=== PATIENT | male | born 1990 | race Caucasian/White ===

== ENCOUNTER 2016-09-13 16:09 | Emergency (ER) | payer OTHER ==
[2016-09-13 16:38] LABS: BASOPHIL# 0.1 X 10^3uL (0.0-0.1); BASOPHILS 1.2 % (0.0-2.0); EOSINOPHILS 2.5 % (0.0-6.0); EOSINOPHILS# 0.2 X 10^3uL (0.0-0.4); HEMATOCRIT 50.4 % (42.0-54.0); HEMOGLOBIN 17.4 g/dL (14.0-18.0); LYMPHOCYTES 34.6 % (20.0-40.0); LYMPHOCYTES# 2.5 X 10^3uL (0.8-3.8); MEAN CELL VOLUME 91.1 fL (80.0-100.0); MEAN CORPUS. HGB CONCENTRATION 34.4 g/dL (32.0-36.0); MEAN CORPUSCULAR HEMOGLOBIN 31.4 pg (29.0-35.0); MEAN PLATELET VOLUME 8.5 fL (7.4-10.4); MONOCYTES 8.2 % (2.0-10.0); MONOCYTES# 0.6 X 10^3uL (0.2-1.0); NEUTROPHILS 53.5 % (54.0-75.0); RED BLOOD COUNT 5.54 X 10^6uL (4.20-6.10); RED CELL DISTRIBUTION WIDTH 12.1 % (11.5-14.5); WHITE BLOOD COUNT 7.4 X 10^3uL (3.9-10.7)
--- NOTE | 2016-09-13 17:07 | ER NURSING DOCUMENTATION ---
Nurse's Notes [facility] Name:Carmina Cain Age:26 yrs Sex:Male :1990 Arrival Date:09/13/2016 Time:16:09 Bed1 Private MD: Diagnosis:Rectal Bleeding;Rectal Fissure Presentation: 09/13 16:11 Presenting complaint: Patient states: pt was seen in the clinic and was told that his st [place] only cover ER care. So pt was sent to the ER. pt has been having blood in his stool and rectal pain for 3-5 years. His last episode was 2 weeks ago. pt has no symptoms now. Transition of care: [facility]. 16:11 Method Of Arrival: Private Vehicle st 16:18 Acuity: BRANDI 4 rh Triage Assessment: 16:29 General: Appears in no apparent distress, Behavior is cooperative. Pain: Complains of st pain in back Pain currently is 6 out of 10 on a pain scale. Unable to use pain scale. pt was seen in the clinic for back pain and prescribed norco. Neuro: No deficits noted. Cardiovascular: No deficits noted. Respiratory: No deficits noted. GI: Reports pt states that every few weeks he has some rectal pain with bloody stools that last for a few days and then go away. pt has never seen a drSruthi for this. Historical: - Allergies: No known drug Allergies; - Home Meds: 1. steroids 2. [place] Oral 3. mucle relaxer - PMHx: back troubles; - PSHx: None; - Tetanus: < 10 years. - Ebola Screening: : Patient denies exposure to infectious person. Patient denies travel to an Ebola-affected area in the 21 days before illness onset. . - Social history: Smoking status: Patient states was never smoker of tobacco. Patient/guardian denies using alcohol, marijuana. Screenin:31 Infectious Disease Risk None. Abuse screen: Denies threats or abuse. Denies injuries st from another. Nutritional screening: No deficits noted. Vital Signs: 16:31 BP 166 / 97; Pulse 73; Resp 16; Temp 97.8; Pulse Ox 94% ; Pain 6/10; st 17:05 BP 159 / 89; Pulse 66; Resp 16; Pulse Ox 93% on R/A; rh ED Course: 16:11 Patient arrived in ED. lm3 16:18 Triage completed. 16:24 Flori Mcintyre RN is Primary Nurse. st 16:24 Labs drawn. (by ED staff). st 16:31 Valuables Remains with patient Patient has correct armband on for positive st identification. Bed in low position. 16:35 Andrea Costa MD is Attending Physician. damon Administered Medications: No medications were administered Outcome: 16:58 Discharge ordered by . damon 17:05 Discharged to home ambulatory, with significant other. 17:05 Condition: improved 17:05 Discharge Assessment: Patient awake, alert and oriented x 3. No cognitive and/or functional deficits noted. Patient verbalized understanding of disposition instructions. 17:05 Discharge instructions given to patient, significant other, Instructed on discharge instructions, follow up and referral plans. Demonstrated understanding of instructions. 17:06 Patient left the ED. Signatures: Flori Mcintyre RN RN st Meyer, John, MD MD jm Hofsess, Rachel Edna Pryor 3
--- NOTE | 2016-09-13 17:07 | ER PHYSICIAN DOCUMENTATION ---
Physician Documentation [facility] Name:Carmina Cain Age:26 yrs Sex:Male :1990 Arrival Date:09/13/2016 Time:16:09 Bed1 Private MD: Andrea Nunez Disposition: 09/13/16 16:58 Discharged to Home/Self Care. Impression: Rectal Bleeding, Rectal Fissure. - Condition is Good. - Discharge Instructions: RECTAL BLEED, Stable, RECTAL FISSURE Child - ANAL FISSURE (Child). - Medical Reconciliation form form. - Follow up: Private Physician; When: [facility]; Reason: Continuance of care. - Problem is new. - Symptoms have improved. HPI: 09/13 18:23 This 26 yrs old Male presents to ER via Private Vehicle with complaints of jm Back Pain. 18:23 The patient presents to the emergency department with rectal bleeding, a small amount, jm 2 weeks ago. Pt sent up by clinic to get a CBC as he's ahd some painful rectal bleeding in the past. . Historical: - Allergies: No known drug Allergies; - Home Meds: 1. steroids 2. [place] Oral 3. mucle relaxer - PMHx: back troubles; - PSHx: None; - Tetanus: < 10 years. - Ebola Screening: : Patient denies exposure to infectious person. Patient denies travel to an Ebola-affected area in the 21 days before illness onset. . - Social history: Smoking status: Patient states was never smoker of tobacco. Patient/guardian denies using alcohol, marijuana. ROS: 18:23 Abdomen/GI: Positive for rectal bleeding, Negative for abdominal pain, nausea, jm vomiting, diarrhea. 18:23 Back: Positive for pain at rest, pain with movement, chronic. Exam: 18:23 Eyes: Conjunctiva: normal. jm 18:23 Abdomen/GI: Inspection: abdomen appears normal, Bowel sounds: normal, Rectal exam: the exam is deferred. Vital Signs: 16:31 BP 166 / 97; Pulse 73; Resp 16; Temp 97.8; Pulse Ox 94% ; Pain 6/10; st 17:05 BP 159 / 89; Pulse 66; Resp 16; Pulse Ox 93% on R/A; rh MDM: 16:35 Patient medically screened. 18:23 Differential diagnosis: fissues. ED course: Pt w classic rectal fissures by damon description. Pt w/o bleeding in over 2 weeks. Hgb is >17, so pt can f/u as need for this. . 18:23 Data reviewed: vital signs, nurses notes, old medical records, and as a result, I will jm discharge patient. Counseling: I had a detailed discussion with the patient and/or guardian regarding: the historical points, exam findings, and any diagnostic results supporting the discharge/admit diagnosis, the need for outpatient follow up, with the patient's primary care provider. 09/13 16:40 Order name: CBC AUTO DIF, MDIF/RMOR IF IND; Complete Time: 16:57 EDMS Dispensed Medications: No medications were administered Signatures: Flori Mcintyre, RN Andrea Butler MD MD jm Hofsess, Rachel
== END 2016-09-13 17:06 | disposition home or self-care (01) ==
LOC: ER 16:09
DX: K60.2 Anal fissure, unspecified (principal); M54.9 Dorsalgia, unspecified; G89.29 Other chronic pain; Z79.899 Other long term (current) drug therapy
CPT/HCPCS: 85025; 99283

== ENCOUNTER 2016-12-20 17:36 | Emergency (ER) | payer OTHER, MEDICAID ==
[2016-12-20] MEDS ORDERED: TETRACAINE 0.5% OPHTH 15 ML BOTTLE ONE (18:10)
[2016-12-20] MEDS ORDERED: FLUORESCEIN STRIP 1 MG/STRIP STRIP ONE (18:10)
[2016-12-20] MEDS ORDERED: DIPH,PERTUSS(ACELL),TET VAC/PF 0.5 ML VIAL IM ONE (18:11)
[2016-12-20] MEDS ORDERED: LIDOCAINE/EPI 1% 1:100,000 20 ML VIAL ONE (18:40)
--- NOTE | 2016-12-20 19:13 | ER PHYSICIAN DOCUMENTATION ---
Physician Documentation [facility] Name:Carmina Cain Age:26 yrs Sex:Male :1990 Arrival Date:12/20/2016 Time:17:36 Bed5 Private MD: Abdi Troy Disposition: 12/22 05:50 Chart complete. tl1 Disposition: 12/20/16 19:07 Discharged to Home/Self Care. Impression: Dog Bite, Eyelid Laceration. - Condition is Good. - Discharge Instructions: DOG BITE, LACERATION, All. - Medical Reconciliation form form. - Follow up: Mark Schmitt MD; When: 4- 6 days; Reason: Staple/Suture removal. - Problem is new. - Symptoms have improved. HPI: 12/20 17:41 This 26 yrs old Male presents to ER with complaints of Dog Bite - WELD CO. tl1 12/21 17:41 The patient was bitten on the superior lateral left upper eyelid, by a dog, in an tl1 unprovoked manner. Onset: The symptom(s)/episode began/occurred suddenly, just prior to arrival. Animal information: Patient/Caregiver unable to provide information related to the animal. Secondary to the bite the patient reports a laceration, that is superficial. Associated signs and symptoms: The patient has no apparent associated signs or symptoms, Pertinent negatives:. Severity of symptoms: At their worst the symptoms were very mild, in the emergency department the symptoms are unchanged. Historical: - Allergies: Ibuprofen; - Tetanus: < 10 years. - Ebola Screening: : Patient negative for fever greater than or equal to 101.5 degrees Fahrenheit, and additional compatible Ebola Virus Disease symptoms. Patient denies exposure to infectious person. Patient denies travel to an Ebola-affected area in the 21 days before illness onset. No symptoms or risks identified at this time. . - Immunization history: Flu Vaccine None. - Social history: Smoking status: Patient states former smoker of tobacco. ROS: 17:41 Skin: Positive for laceration(s). tl1 17:41 All other systems are negative. Exam: 17:41 Constitutional: This is a well developed, well nourished patient who is awake, alert, tl1 and in no acute distress. 17:41 Head/Face: Normocephalic, atraumatic. tl1 17:41 Eyes: Periorbital structures: laceration, that is superficial, approximately 1.2 cm(s), on the superior lateral left upper eyelid. 17:41 ENT: Exam is negative for acute changes. 17:41 Cardiovascular: Rate: normal. 17:41 Respiratory: Respirations: normal. 17:41 Skin: Appearance: normal except for affected area, Tiny 2 x 2 mm triangular skin defect that is not even through the epidermis of his right index finger. There was no bleeding. Vital Signs: 12/20 17:42 BP 151 / 85; Pulse 86; Resp 16; Temp 98.4; Pulse Ox 94% ; Weight 81.65 kg; Height 6 ft. jt 2 in. (187.96 cm); Pain 7/10; 17:42 Body Mass Index 23.11 (81.65 kg, 187.96 cm) jt Laceration: 12/21 17:41 Wound Repair of 1.2cm ( 0.5in ) subcutaneous laceration to left upper eyelid. Linear tl1 shaped.. Distal neuro/vascular/tendon intact. Anesthesia: Wound infiltrated with 1 mls of 1% lidocaine w/ Epi. Wound prep: Simple cleansing with betadine with hibiclenz by marine diesel technician, Wound irrigation with saline by marine diesel technician, Wound explored. Skin closed with 5-0 Ethilon using Running sutures. Dressed with Bacitracin, Open to air. Patient tolerated well. MDM: 17:41 Rabies Status: Rabies immunization is not indicated. Data reviewed: vital signs, nurses tl1 notes, and as a result, I will discharge patient. Counseling: I had a detailed discussion with the patient and/or guardian regarding: the historical points, exam findings, and any diagnostic results supporting the discharge/admit diagnosis, the need for outpatient follow up, to return to the emergency department if symptoms worsen or persist or if there are any questions or concerns that arise at home. Response to treatment: the patient's symptoms have markedly improved after treatment, and as a result, I will discharge patient. 12/20 17:41 Patient medically screened. tl1 12/20 17:56 Order name: Wound Care; Complete Time: 18:03 tl1 Dispensed Medications: 18:02 Drug: Fluorescein Strip 1 strip; Route: Ophthalmic; Site: left eye; bw2 18:02 Drug: Tetracaine Drops 0.5 % 1 drops; Route: Ophthalmic; Site: left eye; [facility] 18:03 Drug: Tetanus-Diphtheria Toxoid Adult 0.5 ml; {Health Type Technician: [employer]. Exp: 2 09/08/2039. Lot #: [id number]. } Route: IM; Site: left deltoid; Signatures: Abdi Urias MD MD tl1 [facility]
--- NOTE | 2016-12-20 19:13 | ER NURSING DOCUMENTATION ---
Nurse's Notes [facility] Name:Carmina Cain Age:26 yrs Sex:Male :1990 Arrival Date:12/20/2016 Time:17:36 Bed5 Private MD: Diagnosis:Dog Bite;Eyelid Laceration Presentation: 12/20 17:38 Acuity: BRANDI 3 bw2 17:43 Presenting complaint: Patient states: he was bitten by an unknown dog. pt states attack bw2 was unprovoked. pt does not know the status of dog. pt has scracth to left eye lid and right index finger. Transition of care: patient was not received from another setting of care. 17:43 Method Of Arrival: Walk In [facility] Triage Assessment: 17:46 Bite description: bite sustained to left eye and right index finger by a dog, animal bw2 information: vaccination(s) is unknown. General: Appears in no apparent distress, Behavior is anxious, appropriate for age. Pain: Complains of pain in left eye lid. Historical: - Allergies: Ibuprofen; - Tetanus: < 10 years. - Ebola Screening: : Patient negative for fever greater than or equal to 101.5 degrees Fahrenheit, and additional compatible Ebola Virus Disease symptoms. Patient denies exposure to infectious person. Patient denies travel to an Ebola-affected area in the 21 days before illness onset. No symptoms or risks identified at this time. . - Immunization history: Flu Vaccine None. - Social history: Smoking status: Patient states former smoker of tobacco. Screenin:52 Infectious Disease Risk None. Abuse screen: Denies threats or abuse. Nutritional bw2 screening: No deficits noted. Assessment: 17:52 Derm: Skin is intact, Skin is pink, warm & dry. bw2 Vital Signs: 17:42 BP 151 / 85; Pulse 86; Resp 16; Temp 98.4; Pulse Ox 94% ; Weight 81.65 kg; Height 6 ft. jt 2 in. (187.96 cm); Pain 7/10; 17:42 Body Mass Index 23.11 (81.65 kg, 187.96 cm) jt ED Course: 17:38 Patient arrived in ED. jt 17:38 Marly Alejandra is Primary Nurse. bw2 17:38 Triage completed. bw2 17:41 Abdi Urias MD is Attending Physician. tl1 17:52 Patient police department contacted. bw2 19:07 Mark Schmitt MD is Referral Physician. tl1 Administered Medications: 18:02 Drug: Fluorescein Strip 1 strip; Route: Ophthalmic; Site: left eye; bw2 18:02 Drug: Tetracaine Drops 0.5 % 1 drops; Route: Ophthalmic; Site: left eye; bw2 18:03 Drug: Tetanus-Diphtheria Toxoid Adult 0.5 ml; {Operational Intelligence Analyst: [employer]. Exp: 2 09/08/2039. Lot #: [id number]. } Route: IM; Site: left deltoid; Outcome: 19:07 Discharge ordered by . tl1 19:12 Patient left the ED. 2 12/21 08:35 Discharge F/U Call: Unable to reach: no answer 08:45 Discharge F/U Call: Spoke with: patient. other: Name: PT is sore today but is doing st well. We did discussed when he could take a shower and that he soul not soke the wounds till the sutures come out. Signatures: Flori Mcintyre, Abdi Rosen RN, MD MD tl1 Mariza Simms [facility]2
== END 2016-12-20 19:13 | disposition home or self-care (01) ==
LOC: ER 17:36
DX: S00.272A Other superficial bite of left eyelid and periocular area, initial encounter (principal); S60.470A Other superficial bite of right index finger, initial encounter; W54.0XXA Bitten by dog, initial encounter; Z23 Encounter for immunization
CPT/HCPCS: 12051; 90471; 99282

== ENCOUNTER 2016-12-27 08:01 | Emergency (ER) | payer OTHER, MEDICAID ==
--- NOTE | 2016-12-27 08:52 | ER NURSING DOCUMENTATION ---
Nurse's Notes [facility] Name:Carmina Cain Age:26 yrs Sex:Male :1990 Arrival Date:12/27/2016 Time:08:01 Bed1 Private MD:Mark Schmitt Diagnosis:Suture Removal Presentation: 12/27 08:04 Acuity: BRANDI 4 tg 08:12 Presenting complaint: Patient states: Suture removal from left eyelid. Pt reports pain tg (despite ibuprofen), swelling, redness, and pus. Wound appears dry, pink, healing well. Transition of care: patient was not received from another setting of care. 08:12 Method Of Arrival: Private Vehicle tg - Tetanus: < 10 years. - Ebola Screening: : Patient negative for fever greater than or equal to 101.5 degrees Fahrenheit, and additional compatible Ebola Virus Disease symptoms. Patient denies exposure to infectious person. Patient denies travel to an Ebola-affected area in the 21 days before illness onset. No symptoms or risks identified at this time. . - Immunization history: Flu Vaccine unknown. - Social history: Smoking status: Patient states was never smoker of tobacco. Screenin:10 Infectious Disease Risk Unable to Obtain. Abuse screen: Denies threats or abuse. Denies tg injuries from another. Nutritional screening: No deficits noted. Vital Signs: 08:06 BP 145 / 83; Pulse 75; Resp 14; Temp 98.1(O); Pulse Ox 91% on R/A; Weight 108.86 kg; tg Height 5 ft. 11 in. (180.34 cm); Pain 7/10; 08:06 Body Mass Index 33.47 (108.86 kg, 180.34 cm) tg ED Course: 08:03 Patient arrived in ED. ama 08:03 Mark Schmitt MD is Private Physician. ama 08:05 Triage completed. tg 08:08 Leon Baldwin, AMAYA is Primary Nurse. tg 08:10 Valuables Remains with patient. tg 08:15 Removed sutures from left upper eyelid Suture site is well healed Patient tolerated tg well. 08:17 Andrea Costa MD is Attending Physician. damon 08:29 Mark Schmitt MD is Referral Physician. damon Administered Medications: No medications were administered Outcome: 08:31 Discharge ordered by . damon 08:45 Discharged to home ambulatory. tg 08:45 Condition: stable 08:45 Discharge Assessment: Patient awake, alert and oriented x 3. No cognitive and/or functional deficits noted. Patient verbalized understanding of disposition instructions. 08:45 Instructed on discharge instructions, follow up and referral plans. 08:51 Patient left the ED. tg Signatures: Leon Baldwin RN RN tg Andrea Costa MD MD jm Averdick, Andrew, Reg Reg ama
--- NOTE | 2016-12-27 08:52 | ER PHYSICIAN DOCUMENTATION ---
Physician Documentation [facility] Name:Carmina Cain Age:26 yrs Sex:Male :1990 Arrival Date:12/27/2016 Time:08:01 Bed1 Private MD:Mark Schmitt ED, John Disposition: 12/27/16 08:31 Discharged to Home/Self Care. Impression: Suture Removal. - Condition is Good. - Discharge Instructions: SUTURE REMOVAL, No Complication. - Medical Reconciliation form form. - Follow up: Mark Schmitt MD; When: As needed; Reason: Continuance of care. - Problem is new. - Symptoms have improved. HPI: 12/27 08:49 This 26 yrs old Male presents to ER via Private Vehicle with complaints of jm Suture Removal. 08:49 The patient has sutures on the left supraorbital ridge. Sutures/duane progress: The jm patient has no c/o's. The wound is well-healing with no redness, swelling, discharge, or dehiscence reported. pt worried about some drainage and redness. . - Tetanus: < 10 years. - Ebola Screening: : Patient negative for fever greater than or equal to 101.5 degrees Fahrenheit, and additional compatible Ebola Virus Disease symptoms. Patient denies exposure to infectious person. Patient denies travel to an Ebola-affected area in the 21 days before illness onset. No symptoms or risks identified at this time. . - Immunization history: Flu Vaccine unknown. - Social history: Smoking status: Patient states was never smoker of tobacco. ROS: 08:50 Constitutional: Negative for fever. jm 08:50 Skin: Positive for laceration(s), rash, swelling. Exam: 08:50 Constitutional: The patient appears alert, awake. jm 08:50 Eyes: Periorbital structures: laceration, no cellulitis noted, but rather irritation around the sutures. . Vital Signs: 08:06 BP 145 / 83; Pulse 75; Resp 14; Temp 98.1(O); Pulse Ox 91% on R/A; Weight 108.86 kg; tg Height 5 ft. 11 in. (180.34 cm); Pain 7/10; 08:06 Body Mass Index 33.47 (108.86 kg, 180.34 cm) tg MDM: 08:17 Patient medically screened. jm 08:51 Data reviewed: vital signs, nurses notes, and as a result, I will discharge patient. damon Counseling: I had a detailed discussion with the patient and/or guardian regarding: the historical points, exam findings, and any diagnostic results supporting the discharge/admit diagnosis. ED course: No cellulitis- just irritation . Dispensed Medications: No medications were administered Signatures: Leon Baldwin RN RN tg Andrea Costa MD MD jm
== END 2016-12-27 08:52 | disposition home or self-care (01) ==
LOC: ER 08:01
DX: Z48.02 Encounter for removal of sutures (principal); S00.2 Other and unspecified superficial injuries of eyelid and periocular area
CPT/HCPCS: 99281